=== PATIENT | male | born 1950 ===

== ENCOUNTER 2023-06-21 07:51 | Inpatient (IN) | payer OTHER ==
[2023-06-21 09:19] LABS: HEMATOCRIT 45.6 % (39.0-48.0); HEMOGLOBIN 15.6 g/dL (13-16.00); MEAN CELL VOLUME 90.5 fL (80.0-100.00); MEAN CORPUSCULAR HEMOGLOBIN 30.9 pg (27.00-32.0); MEAN CORPUSCULAR HGB CONC 34.2 g/dl (32.0-36.0); PLATELET COUNT 206 K/uL (150-450); RED BLOOD COUNT 5.05 M/uL (4.00-6.00); RED CELL DISTRIBUTION WIDTH 14.1 % (11.5-14.5)
[2023-06-21] MEDS ORDERED: lipitor (09:29)
[2023-06-21] MEDS ORDERED: HYZAAR 100-251 EACH PO (09:29)
[2023-06-21] MEDS ORDERED: NORVASC5 MG PO (09:30)
[2023-06-21 09:44] LABS: PH,URINE 5.5 (5.0-8.0); URINE APPEARANCE Clear; URINE BILIRRUBIN Negative (NEGATIVE); URINE BLOOD Negative; URINE COLOR Yellow; URINE GLUCOSE Negative (NEGATIVE); URINE LEUKOCYTE Negative; URINE NITRATE Negative; URINE PROTEIN Negative (NEGATIVE); URINE UROBILINOGEN 0.2 E.U./dl
[2023-06-21 09:45] LABS: URINE BACTERIA 12.5 uL (0.0-1933); URINE RBC 3.3 uL (0.0-20.8)
[2023-06-21 09:49] LABS: INR 1.04; PARTIAL THROMBOPLASTIN TIME 28.5 SECONDS (22.0-34.0); PROTHROMBIN TIME 10.9 SECONDS (9.0-11.5)
[2023-06-21 09:57] LABS: URINE EPITHELIAL CELLS 1.3 uL (0.0-38.8)
[2023-06-21 10:01] LABS: CALCIUM 9.3 mg/dL (8.5-10.1); CREATININE SERUM 1.32 mg/dL (0.70-1.30); GFR 53.02; POTASSIUM 3.84 mEq/L (3.5-5.1)
[2023-06-28] MEDS ORDERED: CEFAZOLIN SODIUM 1,000 MG VIAL ONE ×2 (07:29→17:43)
[2023-06-28] MEDS ORDERED: ENOXAPARIN SODIUM 40 MG/0.4 ML SYRINGE SUBCUTANEO ONE ×2 (07:29→10:15)
[2023-06-28] MEDS ORDERED: BUPIVACAINE HCL/PF 0.5% 30ML ML ONE (07:31)
[2023-06-28] MEDS ORDERED: CEFAZOLIN SODIUM 1,000 MG in 0.9 % SODIUM CHLORIDE 50 ML IV ONE (10:15)
[2023-06-28] MEDS ORDERED: BUPIVACAINE HCL/PF 0.5% 30ML ML IU ONE (10:15)
[2023-06-28] MEDS ORDERED: ATORVASTATIN CA20 MG (10:17)
[2023-06-28] MEDS ORDERED: SUGAMMADEX SODIUM 200 MG/2 ML VIAL IV ONE ×2 (15:40→15:45)
[2023-06-28] MEDS ORDERED: DEXTROSE 5 %-0.45 % SOD CHLORD 1,000 ML IV SCH (16:51)
[2023-06-28] MEDS ORDERED: CEFAZOLIN SODIUM 1,000 MG VIAL IV SCH (17:00)
[2023-06-28] MEDS ORDERED: SIMETHICONE 125 MG CAPSULE PO SCH (17:00)
[2023-06-28] MEDS ORDERED: MORPHINE SULFATE 2 MG/ML CARTRIDGE IV PRN (17:00)
[2023-06-28] MEDS ORDERED: ONDANSETRON HCL 2 MG/ML VIAL IV PRN (17:00)
[2023-06-28] MEDS ORDERED: DOCUSATE SODIUM 100MG CAP PO SCH (17:00)
[2023-06-28] MEDS ORDERED: FAMOtidine 20 MG TABLET PO SCH (17:00)
[2023-06-29] MEDS ORDERED: LOSARTAN/HYDROCHLOROTHIAZIDE 1 UDTAB TABLET PO SCH (09:00)
[2023-06-29] MEDS ORDERED: AMLODIPINE BESYLATE 5 MG TABLET PO SCH (09:00)
[2023-06-29] MEDS ORDERED: ENOXAPARIN SODIUM 40 MG/0.4 ML SYRINGE SUBCUTANEO SCH (09:00)
[2023-06-29 09:07] LABS: CREATININE SERUM 1.38 mg/dL (0.70-1.30); GFR 50.37; POTASSIUM 3.93 mEq/L (3.5-5.1)
[2023-06-29 09:12] LABS: HEMATOCRIT 38.9 % (39.0-48.0); HEMOGLOBIN 13.4 g/dL (13-16.00); MEAN CELL VOLUME 90.5 fL (80.0-100.00); MEAN CORPUSCULAR HEMOGLOBIN 31.1 pg (27.00-32.0); MEAN CORPUSCULAR HGB CONC 34.4 g/dl (32.0-36.0); PLATELET COUNT 180 K/uL (150-450); RED CELL DISTRIBUTION WIDTH 13.6 % (11.5-14.5)
[2023-06-29 09:22] LABS: CALCIUM 8.4 mg/dL (8.5-10.1)
[2023-06-29] MEDS ORDERED: KETOROLAC TROMETHAMINE 30 MG VIAL IV PRN (12:15)
[2023-06-29] MEDS ORDERED: ACETAMINOPHEN 325 MG TABLET PO PRN (12:15)
== END 2023-06-30 13:35 | disposition home or self-care (01) | DRG 708 ==
LOC: O/R 06-28 05:30 → SURG 06-28 08:00 → SURH 06-28 16:29 → SURG 06-28 16:32
PROVIDERS: ADMIT Urology; ATTEND Urology
PROC: 8E0W4CZ Robotic Assisted Procedure of Trunk Region, Percutaneous Endoscopic Approach (ICD-10-PCS; 2023-06-28)
PROC: 0VT04ZZ Resection of Prostate, Percutaneous Endoscopic Approach (ICD-10-PCS; principal; 2023-06-28 09:00)
DX: C61 Malignant neoplasm of prostate (principal)
CPT/HCPCS: 55866; S2900